=== PATIENT | female | born 1945 | race African-American/Black ===

== ENCOUNTER 2017-01-16 13:08 | Emergency (ER) | payer OTHER ==
[~2017-01-16] VITALS: Ht 158.8 cm; Wt 79.8 kg
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
--- NOTE | ~2017-01-16 | CR58 ---
[facility] A Service of [facility] & [facility] RADIOLOGY TEXT RESULTS PATIENT: SCOTT DENT LOCATION: [facility] : 43 UNIT #: [id number] AGE: [address]: Tabby Dent APRN SEX: F ORDER DR: [id number] [facility] [address] [place], [place] [address] [id number] E MR#: [id number] Acc #: [id number] NAME: SCOTT DENT. : 1945 SEX: F STUDY DATE/TIME: 01/16/2017 17:26 UNIT: [facility] ROOM: STUDY DESCRIPTION: CR Cervical Spine 2 or 3 Views Attending Physician: Tabby Dent A.P.R.N. Ordering Physician: Ed Doctor [id number] [facility] Primary Care Physician: [facility], [facility] REPORT This report is preliminary unless electronic signature is present EXAM Cervical spine series, 01/16/2017 HISTORY Repeat odontoid view. FINDINGS Open mouth odontoid views cervical spine performed. Repeat open mouth odontoid view viewed in conjunction with remainder of cervical spine series performed earlier on same date. C1-C2 relationship normal. Please see earlier dictation for evaluation of remainder of the cervical spine. Dictated by... Vignesh Vizcarra M.D. THIS IS AN ELECTRONICALLY VERIFIED REPORT Vignesh Vizcarra M.D. at 01/17/2017 6:52 PM Neisha TD: 01/17/2017 09:51 JOB #: [id number] MEDICAL IMAGING REPORT Page 1 of 1 COPY
--- NOTE | ~2017-01-16 | CR181 ---
[facility] A Service of [facility] & [facility] RADIOLOGY TEXT RESULTS PATIENT: SCOTT DENT LOCATION: [place] : 43 UNIT #: [id number] AGE: [address]: Tabby Dent APRN SEX: F ORDER DR: [id number] [facility] [address] [place], [place] [address] [id number] E MR#: [id number] Acc #: [id number] NAME: SCOTT DENT. : 1945 SEX: F STUDY DATE/TIME: 01/16/2017 15:21 UNIT: [facility] ROOM: STUDY DESCRIPTION: CR Lumbar Spine 2 or 3 Views Attending Physician: Tabby Dent A.P.R.N. Ordering Physician: Thierno Gu M.D. Primary Care Physician: [facility] MEDICAL IMAGING REPORT This report is preliminary unless electronic signature is present EXAM Lumbar spine 3 views. INDICATIONS Low back pain for 1 day. COMPARISON No comparisons. FINDINGS Vertebral body heights and alignment are maintained. There is mild disc space narrowing at multiple levels. Lower lumbar spine facet arthropathy. IMPRESSION Degenerative changes as described. Dictated by... Deacon Manning M.D. THIS IS AN ELECTRONICALLY VERIFIED REPORT Deacon Manning M.D. at 01/18/2017 7:13 AM ARS/mike TD: 01/17/2017 07:34 JOB #: [id number] MEDICAL IMAGING REPORT Page 1 of 1 COPY
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
[~2017-01-16 13:08] MED LIST: ACETAMINOPHEN PO; ALBUTEROL MININEB NEB; ALBUTEROL17 GM INH; AMBIZINE25 MG PO; AMOXIL875 MG PO; ANTIVERT PO; AUGMENTIN875 M1 PO; BENTYL20 M1 PO; BLEPH-105 M2 OP; COLACE50 MG PO; DOC-Q-LACE100 MG PO; FLOVENT DISKU100 MCG IH; FLOVENT DISKU250 MCG IH; HYDROCODON-ACE1 EAC9 PO; MEDI-MECLIZINE25 M1 PO; MIRALAX17 GM PO; NEXIUM20 MG PO; PANTOPRAZOLE SO40 MG PO; SPIRIVA18 MCG INH; TYLENOL325 M1 PO; VITAMIN D400 UNI2 PO
== END 2017-01-16 19:05 | disposition home or self-care (01) ==
LOC: CFTX 13:08 → CED 13:08 → CFTX 14:53
DX: S13.9XXA Sprain of joints and ligaments of unspecified parts of neck, initial encounter (principal); S33.5XXA Sprain of ligaments of lumbar spine, initial encounter; S40.012A Contusion of left shoulder, initial encounter; J44.9 Chronic obstructive pulmonary disease, unspecified; K21.9 Gastro-esophageal reflux disease without esophagitis; V43.92XA Unspecified car occupant injured in collision with other type car in traffic accident, initial encounter
CPT/HCPCS: 70450; 71020; 72040; 72100; 73030; 99284